=== PATIENT | male | born 1950 ===

== ENCOUNTER 2020-06-12 13:27 | Inpatient (IN) | payer MEDICARE, BC ==
[~2020-06-12] VITALS: Ht 170.2 cm; Wt 93.0 kg
--- NOTE | 2020-06-12 14:00 | NUR ---
RECEIVED VIA CART FROM [facility] IN [place] 69Y/O MALE.IS CONFUSED AND DISORIENTED.OBSERVED TALKING TO UNSEEN PERSON.IS VERY HARD OF HEARING ,WEARS GLASSES BUT DOES NOT HAVE THEM WITH HIM.IS AMBULATORY WITH WALKER AT HOME.CHARGE NURSE MARISSA BERGMAN RN SPOKE WITH SPOUSE THELMA ADORNO AT [phone] TO OBTAIN PERMISSON TO TREAT AND CODE STATUS DNR.HAS HAD COVID VACCINE X2 AND TESTED NEGATIVE FOR COVID 06/11/20.COVID TEST NOT ORDERED ON ADMISSION.PHARMACY OF CHOICE IS [facility] IN [place].PASSCODE 1805 GIVEN TO SPOUSE.PCP IS CHACORTA MURILLO [phone].WILL INITIATE PLAN OF CARE.
--- NOTE | 2020-06-12 18:00 | NUR ---
REFUSED EVENING MEAL.CONTINUES TO TALK TO UNSEEN PERSON.
[2020-06-12] MEDS ORDERED: BAYER CHEWABLE81 MG PO (19:56)
[2020-06-12] MEDS ORDERED: ZYLOPRIM300 MG PO (19:56)
[2020-06-12] MEDS ORDERED: NORVASC10 MG PO (19:56)
[2020-06-12] MEDS ORDERED: LIPITOR20 MG PO (19:57)
[2020-06-12] MEDS ORDERED: DONEPEZIL HCL10 MG PO (19:57)
[2020-06-12] MEDS ORDERED: KEPPRA500 MG PO (19:57)
[2020-06-12] MEDS ORDERED: COZAAR100 MG PO (19:57)
[2020-06-12] MEDS ORDERED: ZOLOFT100 MG PO (19:58)
[2020-06-12] MEDS ORDERED: TRAZODONE HCL50 MG PO (19:58)
[2020-06-12] MEDS ORDERED: ERGOCALCIF50000 UNIT PO (19:58)
[2020-06-12 20:00] VITALS: BP 134/88
--- NOTE | 2020-06-12 21:42 | NUR ---
PT IS RECEIVED IN A WHEELCHAIR OUTSIDE THE NURSES STATION. OBSERVED HAVING A CONVERSATION WITH UNSEEN OTHERS. RELATES THAT HE IS ON A PHONE CALL. COOPERATIVE WITH STAFF. DIFFICULT TO REDIRECT. MONITOR FOR SAFETY.
[2020-06-13 07:06] LABS: BASOPHILS 0.6 % (0-2); EOSINOPHILS 4.8 % (0-7); HEMATOCRIT 46.8 % (42.0-54.0); HEMOGLOBIN 14.8 g/dL (13.5-17.5); IMMATURE GRANULOCYTES 0.4 % (0-5); LYMPHOCYTE ABS# 1.01 10x3/uL (1.32-3.57); LYMPHOCYTES 20.3 % (15-50); MCH 27.6 pg (26.0-34.0); MCHC 31.6 g/dL (31.0-37.0); MCV 87.3 fL (80.0-100.0); MEAN PLATELET VOLUME 11.2 fL (7.4-10.4); MONOCYTES 7.2 % (2-11); NEUTROPHIL ABS# 3.32 10x3/uL (1.78-5.38); NEUTROPHILS 66.7 % (40-80); PLATELET COUNT 153 10x3/uL (130-400); RBC 5.36 10x6/uL (4.20-6.10); RDW 13.3 % (11.5-14.5)
[2020-06-13 08:04] LABS: ALBUMIN 3.3 g/dL (3.4-5.0); ANION GAP 15.9 mmol/L (8-16); BILIRUBIN - TOTAL 0.33 mg/dL (0.2-1.3); CALCIUM 8.8 mg/dL (8.5-10.1); CARBON DIOXIDE 25.9 mmol/L (21.0-32.0); CHOL - HDL RATIO 2.2 ratio (2.3-4.9); CREATININE - SERUM 2.1 mg/dL (0.6-1.3); LDL-HDL RATIO 0.7 ratio (1.5-3.5); POTASSIUM - SERUM 4.8 mmol/L (3.5-5.1); PROTEIN - SERUM 6.6 g/dL (6.4-8.2); THYROID STIMULATING HORMONE 0.54 uIU/mL (0.36-3.74)
--- NOTE | 2020-06-13 08:53 | NUR ---
PT CALLED THIS SHIFT. PASSCODE GIVEN. SHE WANTED TO KNOW HOW HIS NIGHT WAS AND WHAT HIS BLOOD SUAGR WAS. NURSE GAVE AN UPDATE HE SLEPT WELL, CONTINUES TO HAVE HALLUCINATIONS AND HIS FBSB WAS 111 MG/DL. SHE THANKED NURSE STATING I'M SURE THE DOCTOR HAS NOT BEEN IN YET TO SEE HIM BUT I JUST WANTED TO KNOW HOW HE WAS DOING.
[2020-06-13 09:42] VITALS: BP 143/72
--- NOTE | 2020-06-13 13:09 | PSY ---
PATIENT NAME:EDISON ADORNO MEDICAL RECORD: [id number] : 50 LOCATION:[facility] [id number] ADMISSION DATE: 06/12/20 ACCOUNT: [id number] PSYCHIATRIC EVALUATION DATE OF EVALUATION: 06/12/20 IDENTIFYING DATA: The patient is 69 years old and he was transferred here on a voluntary basis. CHIEF COMPLAINT: Aggression and paranoid thoughts. HISTORY OF PRESENT ILLNESS: The patient is very distressed. He is crying, rubbing his head, rocking back and forth, and clearly is displaying a high degree of distress with a low degree of specificity about what is wrong and how I can help him. There is some information that I have at this point and additional sources need to be obtained. Apparently, he was inpatient at [facility] on the rehabilitation unit. He was admitted there for the nebulous diagnosis of metabolic encephalopathy. That does not make sense to me, it is not an appropriate diagnosis or rehabilitation admission that this is what has been told to us and I do not have the records at this point. The patient is particularly triggered and becomes agitated when the name Ralf is mentioned, I believe that is one of his children, but I did not want to mention the name or ask him about this because he was so distressed. He does tell me that he does not want to live, does not care what happens to him, but says he would not hurt himself. I did ask him about wanting to hurt anyone else. He did not mention anyone including the name, Ralf. I did not ask him any more questions because of his current situation and wanted to keep the initial interview abbreviated because of his distress. PAST MEDICAL HISTORY: I do not know that his past medical history is significant for seizure disorder, chronic renal disease, diabetes, previous stroke, and hypertension. PAST PSYCHIATRIC DISEASE: Significant for a diagnosis of dementia and both Lewy body and Alzheimer's have been mentioned. FAMILY HISTORY: Unknown. SOCIAL HISTORY: The patient is and had been living with his ; I do not know if this person Ralf is one of his children are not. I do not know about his longitudinal history of social and occupational functioning and did not enquire about it because of the reasons mentioned above. MENTAL STATUS EXAMINATION: The patient is alert, awake, and oriented to person and place, but not to time or situation. His mood is anxious and his affect is labile. He is crying and rubbing his head and holding his face and wringing his hands and rocking back and forth. I did not go through formal mental status testing, but based on the interview, I think that his memory, concentration, and abstraction abilities are impaired. As mentioned above, he has these vague thoughts of not wanting to live, but no thoughts of harming others. ALLERGIES: Unknown. CURRENT MEDICATIONS: Unknown and the MAR from the other hospital is pending. ASSESSMENT: AXIS I: Advanced neurocognitive disorder of the Alzheimer's type. Major depression, severe. AXIS II: Deferred. AXIS III: Diabetes, seizure disorder, status post stroke, hypertension, chronic renal disease. AXIS IV: Unknown. AXIS V: Global assessment of functioning is 25. PLAN: At this time, the patient is again displaying a very high level of distress and we do not have even his list of medications. I am going to give him a low dose of Ativan to calm him and will gather additional information which may significantly influence what I have written above, but I will document that in subsequent notes. He is in a safe place, he will be fully evaluated and symptoms will be addressed as they present. TRANSINT:[id number] Voice Confirmation ID: [id number] DOCUMENT ID: [id number] ANATOLY HALE MD at 1309 CC: [id number] DICTATION DATE: 06/12/201808 BIRD SITTER: 06/12/20 2141 ADM IN [facility] [address] [place] [address]
--- NOTE | 2020-06-13 18:02 | NUR ---
Patient was rec'd this am in a w/c in [facility]. He is self ambulatory in his w/c. He is having active hallucinations and will be talking to the staff and answering his hallucinations and his delusions. He is paranoid. He is Hyper mobile as he goes really fast in his w/c and will hit staff, other patients, the wall etc... He gets easily upset if he is trying to answer his hallucinations and converse with staff. He is med compliant and took meds whole without difficulty. He cannot answer this nurses questions if he is having delusions, paranoia or hallucinations.He attempted to attend group activities/therapy but was unable.
[2020-06-13 20:00] VITALS: BP 114/69
--- NOTE | 2020-06-13 21:20 | NUR ---
PT IS ALERT AND ORIENTED TO SELF ONLY. RECEIVED IN DAYROOM IN WHEELCHAIR. HE IS OBSERVED SPEAKING WITH UNSEEN OTHERS. HYPERVERBAL AND RESTLESS IN WHEELCHAIR. COMPLIANT WITH ALL MEDICATIONS. DIFFICULT TO REDIRECT AT TIMES. PLEASANT WITH STAFF. MONITOR FOR SAFETY.
[2020-06-14 06:20] LABS: RAPID PLASMA REAGIN Non Reactive (Non Reactive)
[2020-06-14 08:29] VITALS: BP 127/76; Ht 170.2 cm; Wt 93.0 kg
[2020-06-14 09:34] VITALS: BP 126/70
--- NOTE | 2020-06-14 16:44 | NUR ---
Patient is in the dayrroom and was attempting to lure another patient into a corner and make him sit down. This patient reached out for his hand and stated "now sit down". The other patient started to walk away and this patient started rolling his w/c real fast next to this patient and almost knocked him to the floor when this nurse interviewed. This patient said "I'm sorry" when redirected.
[2020-06-14 20:00] VITALS: BP 107/74
--- NOTE | 2020-06-14 22:10 | NUR ---
SPOKE WITH PATIENT'S AND UPDATE GIVEN. RELATED SHE WILL VISIT TOMORROW AND WAS ASKING IF ANOTHER FAMILY MEMBER WHICH IS IMPAIRED COULD VISIT AT THE SAME TIME WITH HER. INFORMED PATIENT'S TO CALL IN AM AND CHECK WITH THE DAY SHIFT IF IT IS APPROVED. VERBALIZED UNDERSTANDING.
--- NOTE | 2020-06-14 23:49 | NUR ---
B)RECEIVED PATIENT SITTING IN THE DAYROOM IN A WHEELCHAIR. ANGRY AFFECT. ANGRY AND WHEN STAFF ATTEMPTED TO INTERACT WITH PATIENT HE REALTED "I'M STUCK HERE. WON'T LET ME DO ANYTHING." INQUIRED TO WHAT PATIENT WANTS TO DO HE RESPONDS "WHAT DO YOU WANT ME TO DO? ALL I'M TRYING TO DO IS BE FAIR." UNABLE TO COMMUNICATE WITH PATIENT DUE TO PREOCCUPATION WITH FEELINGS OF BEING TREATED UNFAIRLY. I)ADMINISTER MEDS AND MONITOR COMPLIANCE. INVOLVE IN REALITY BASED CONVERSATIONS. R)MED COMPLIANT. PATIENT IS PREOCCUPIED WITH FEELINGS OF BEING MISTREATED AND IS ANGRY ABOUT BEING HERE. P)CONTINUE POC AND PROVIDE SAFE ENVIRONMENT.
[2020-06-15 05:54] LABS: BILIRUBIN NEGATIVE (NEGATIVE); KETONE NEGATIVE (NEGATIVE); NITRITE NEGATIVE (NEGATIVE); UROBILINOGEN NORMAL mg/dL (< 2)
[2020-06-15 08:00] VITALS: BP 114/72
--- NOTE | 2020-06-15 11:22 | NUR ---
PT CALLED TO CHECK ON PT. PASSCODE GIVEN. PT WAS HAVING A BAD EVENING ON PREVIOUS SHIFT. PT WAS DOING MUCH BETTER THIS A.M. SHE STATED SHE WOULD BE VISIT THIS SHIFT.
--- NOTE | 2020-06-15 15:35 | NUR ---
VISITING WITH PATIENT. NO ADVERSE BEHAVIORS OBSERVED.
--- NOTE | 2020-06-15 16:56 | NUR ---
DAUGHTER HERE VISITING WITH PATIENT. VISITED EARLIER AND PATIENT STATED TO HER THAT HIS STEP-SON WAS PLANNING TO KILL HIM. ASSURED PATIENT THAT WAS NO THE CASE. PATIENT ALSO STATED HIS CONCERN TO HIS DAUGHTER THAT STEP-SON WAS PLANNING TO KILL HIM. DTR. ALSO RE-ASSURED PT. THAT STEP-SON WAS NOT PLANNING TO HARM HIM. PT STATED THAT STEP-SON WAS RUNNING HIS LIFE. PATIENT QUITE TEARFUL AT TIMES. PATIENT WAS PARTIALLY MED-COMPLIANT FOR MORNING MED PASS. HOWEVER, HE THREW SEVERAL OF HIS MEDS ACROSS THE ROOM. CONTINUE POC, MONITORING FOR PARANOIA AND MED COMPLIANCE.
--- NOTE | 2020-06-15 17:17 | NUR ---
PT CRYING AT THIS TIME STATING HE WAS FRUSTRATED WITH EVERYTHING AND HE WANTED TO GO HOME. STATED REDIRECTED AND REASSURED PT HE WAS DOING BETTER AND WOULD EVENTUALLY GO HOME. THIS NURSE DID SPEAK WITH FAMILY AFTER VISITATION. FAMILY WAS VISIBLY UPSET WITH HOW THE VISIT WENT STATING THE SEIZURES AND DEMENTIA HAVE REALLY PUT HIM DOWNHILL. ITS VERY HARD TO SEE WITH HIM BEING LIKE THIS. NURSE STATED IT WOULD TAKE SOME TIME FOR HIS MEDICATIONS AND GIVING HIM TIME TO SETTLE IN. FAMILY DID VERBALIZIE UNDERSTANDING.
[2020-06-15 20:00] VITALS: BP 114/64
--- NOTE | 2020-06-15 23:54 | NUR ---
RECEIVED PATIENT IN DAYROOM IN WHEELCHAIR, HE WAS INTERACTING WITH OTHER PEERS TO THE BEST OF HIS ABILITY. MEDS CRUSHED, COMPLIANT WITH MEDS. HE WAS PLAYING WITH A BALLOON WITH ANOTHER PATIENT. WILL FOLLOW POC
[2020-06-16 09:43] VITALS: BP 150/73
--- NOTE | 2020-06-16 17:48 | NUR ---
RECEIVED IN PATIENT ROOM. RESTING IN BED WITH EYES OPEN. CALM AND COOPERATIVE WITH CARE AND ASSESSMENT. NO AGGRESSIVE BEHAVIOR. NO PARANOID OR DELUSIONAL STATEMENTS MADE. REDIRECT AND REORIENT NEEDED. EATING DINNER AT THIS TIME. CONTINUE PLAN OF CARE.
[2020-06-16 21:06] VITALS: BP 115/59
--- NOTE | 2020-06-16 21:22 | NUR ---
RECEIVED IN DAYROOM. SITTING IN A WHEELCHAIR WITH PEERS AT HIS SIDE. CALM AND COOPERATIVE WITH CARE AND ASSESSMENT. NO SIGNS OF PARANOIA. REDIRECT AND REORIENT NEEDED. CONTINUES TO SIT CALMLY IN DAYROOM. CONTINUE PLAN OF CARE.
[2020-06-17 08:00] VITALS: BP 123/69
--- NOTE | 2020-06-17 11:12 | NUR ---
NUTRITION FOLLOW UP: COMMENTS: Patient now with height recorded. Patient has a BMI of 31.0. Patient is able to feed himself per MD. Good PO intake for the past 9 meals. DIET: Diabetic Diet w/ [place]-Thick Liquids PO INTAKE: 72% avg for last 9 meals; 100% for last 5 snacks WEIGHT: 06/13-199.4 lbs; 06/16-198 lbs SKIN: No PU or Chronic Wounds BM: x 1 on 06/17 RECOMMENDATIONS: -Continue DM diet with [place]Thick liquids per FRONT DESK OFFICER -Offer [place]Thick supplements if PO intake avg becomes <50% RD to follow up within 7 days
--- NOTE | 2020-06-17 11:30 | NUR ---
GT BELT, PATIENT MIN ASST TO STAND AND TO WALK IN CHEN FOR 80 FEET. PATIENT WAS A LITTLE UNSTEADY WHEN TURNING.
--- NOTE | 2020-06-17 12:00 | NUR ---
Received patient sitting in hallway in wheelchair by nurses station. Awake and alert to person only. Calm and cooperative with assessment at this time. Prescribed medications provided as ordered. Med compliant. Patient noted talking to unseen others throughout the shift. Redirect and reorient at this time. No aggression noted at this time. Fall precautions in place for safety. Will cpoc.
--- NOTE | 2020-06-17 13:46 | PN ---
PATIENT:EDISON ADORNO MEDICAL RECORD: [id number] LOCATION:CH[facility]O PersaudSuzanna112 ADMISSION DATE: 06/12/20 PROGRESS NOTE DATE OF SERVICE: 06/13/2020 SUBJECTIVE: The patient's case was discussed with staff. He has no new complaint. OBJECTIVE: The patient is in good behavioral control. He has no thoughts of harming himself or others. He tolerates his medicines well. ASSESSMENT: Dementia. PLAN: The patient will be maintained on current medications, which I have reviewed. TRANSINT:[id number] Voice Confirmation ID: [id number] DOCUMENT ID: [id number] ANATOLY HALE MD at 1346 CC: [id number] DICTATION DATE: 06/13/20 1601 CABINET WORKER: 06/13/202125 ADM IN [place] [id number] [place] [address]
--- NOTE | 2020-06-17 16:39 | NUR ---
concrete worker spoke to patient's , Ivania, to discuss patient's condition and discharge planning needs. concrete worker explained patient is talking to unseen others and was reported arguing with him this morning. Patient seems to be in agitated mood. concrete worker told Ivania that she can inquire about the medicines with nurse anytime she wants to know about medication changes, but the foster care social worker was not able to go over medications due to scope of practice. Ivania stated that she would ask nurse on next phone call and did not want to be transferred at this time. Ivania stated thatShe will contact nurse this evening for medication changes. Jenny also asked the foster care social worker what would be the place he would most fit at this time if he stays as he is. concrete worker recommended memory care or [facility] placement and stated patient needs 24/ supervision. No other needs were voiced at this time.
--- NOTE | 2020-06-17 20:28 | NUR ---
RECEIVED IN BEDROOM. RESTING QUIETLY IN BED WITH EYES OPEN. CALM AND COOPERATIVE WITH CARE AND ASSESSMENT. NO SIGNS OF PARANOIA. REDIRECT AND REORIENT NEEDED. RESTING IN BED WITH MHT BY HIS BEDSIDE. CONTINUE PLAN OF CARE.
[2020-06-17 21:36] VITALS: BP 156/86
[2020-06-18 08:43] VITALS: BP 133/84
--- NOTE | 2020-06-18 11:39 | NUR ---
PATIENT WAS SITTING IN WHEELCHAIR, WAS VERY CONFUSED. REFUSED ALL MOBILITY.
--- NOTE | 2020-06-18 16:04 | PN ---
PATIENT:EDISON ADORNO MEDICAL RECORD: [id number] LOCATION:CH[facility] Barriga112 ADMISSION DATE: 06/12/20 PROGRESS NOTE DATE OF SERVICE: 06/17/2020 SUBJECTIVE: The patient's case was discussed with staff. He has no new complaint. OBJECTIVE: The patient is only partially oriented. He is significantly and seriously impaired. He is talking to persons not present. ASSESSMENT: Dementia. PLAN: The patient will be treated with a higher dose of Effexor. His long-term prognosis is guarded. TRANSINT:[id number] Voice Confirmation ID: [id number] DOCUMENT ID: [id number] ANATOLY HALE MD at 1604 CC: [id number] DICTATION DATE: 06/17/20 172 DEPUTY ADMINISTRATOR: 06/17/20 2241 ADM IN [facility] [address] [place] [address]
--- NOTE | 2020-06-18 17:44 | NUR ---
WAS OBSERVED WITH TEARS ON CHEEKS THIS AM.THIS NURSE TALKED WITH HIM AND ENCOURAGED HIS VOICING WHAT WAS MAKING HIM CRY.HE STATED"I LET EVERYONE DOWN,I JUST WANT ANOTHER CHANCE TO PROVE MYSELF." WOULD NOT VOICE HOW HE FELT HE LET HIS FAMILY DOWN.HIS SPOUSE CALLED TODAY TO CHECK ON HIM,THIS NURSE INFORMED HER ABOUT HIS CRYING AND WHAT WAS SAID.SHE WILL CALL HIM TONIGHT.IS COMPLIANT WITH STAFF AND MEDS.NO AGGRESSION OBSERVED.HE WAS OBSERVED TALKING TO UNSEEN PERSON.WILL CONTINUE WITH CURRENT PLAN OF CARE,MONITOR FOR CHANGES AND SAFETY.
--- NOTE | 2020-06-18 21:41 | NUR ---
RECEIVED IN HALLWAY OUTSIDE OF NURSES STATION. SITTING QUIETLY IN A WHEELCHAIR. CALM AND COOPERATIVE WITH CARE AND ASSESSMENT. NO SIGNS OF PARANOIA. REDIRECT AND REORIENT NEEDED. CONTINUES TO SIT QUIETLY IN HALLWAY. CONTINUE PLAN OF CARE.
[2020-06-18 22:26] VITALS: BP 124/66
[2020-06-19 08:00] VITALS: BP 137/74
--- NOTE | 2020-06-19 12:53 | NUR ---
NUTRITION REASSESSMENT: COMMENTS: Patient continues eating well and able to feed himself. DIET: Diabetic Diet with [place] Thick Liquids PO INTAKE: 90% avg for last 9 meals WEIGHT: 06/12-199.4 lbs; 06/16-198 lbs BM: x 1 on 06/18 SIG MEDS: Lipitor, Vit D SIG LABS: No new labs since 06/13 RECOMMENDATIONS: Continue current diet per MD/NET TRAINER RD to follow up within 7 days
--- NOTE | 2020-06-19 13:19 | NUR ---
GT BELT, PATIENT MIN ASST TO STAND AND TO WALK IN CHEN FOR 110 FEET USING WALKER. PATIENT DOES PUSH THE WALKER TOO FAR IN FRONT OF HIM, HOWEVER, AND NEEDS TO BE REMINDED TO BRING IT PHOTO TUBE ASSEMBLER TO HIM.
--- NOTE | 2020-06-19 15:39 | PN ---
PATIENT:EDISON ADORNO MEDICAL RECORD: [id number] LOCATION:CH[facility] Barriga112 ADMISSION DATE: 06/12/20 PROGRESS NOTE DATE OF SERVICE: 06/18/2020 SUBJECTIVE: The patient's case was discussed with staff. He has no new complaint. OBJECTIVE: The patient is delusional. He is convinced that, Colt, his son is trying to kill him. He otherwise has been cooperative and not aggressive. He has not been observed talking to persons not present today as he had been in the past few days. ASSESSMENT: Dementia. PLAN: The patient is taking antipsychotic medication. I do not believe it has had an opportunity to be effective and I am reluctant to increase the dose without giving it an opportunity to do so for fear of precipitating side effects. TRANSINT:[id number] Voice Confirmation ID: [id number] DOCUMENT ID: [id number] ANATOLY HALE MD at 1539 CC: [id number] DICTATION DATE: 06/18/20 1616 CREASING AND CUTTING PRESS FEEDER: 06/18/20 2344 ADM IN [facility] [address] [place] [address]
--- NOTE | 2020-06-19 17:29 | NUR ---
Patient has been argumentive all afternoon. He is restless. He is unable to be directed or redirective and countless times he wants to argue with the staff and other patients about issues that don't make sense. He acts as if he just wants to argue with someone. Staff has allowed him time to discuss any concerns or issues but he continues to interupe staff and he was disruptive in group/activities. Ativan IM given as prescribed.
--- NOTE | 2020-06-19 17:57 | NUR ---
Patient is in the dining room. He is disruptive to the other patients. He slamed his tray down one time and it caused spagetti sauce to splatter and then put his head down on the table almost spilling his thickened milk and juice. He is attempting attention seeking behaviors this afternoon and will not redirect.
--- NOTE | 2020-06-19 18:00 | NUR ---
Patient rec'd up in a w/c this am. He is A/O times [address] He is med compliant and takes his meds whole. He has been practicing attention seeking behaviors most all of the afternoon. He will ask the same questions, repeat sentences, talk over the staff and other patients. He has become easily upset with his thickened fluids and he has been on that for a long time. He was disruptive in group.He has a HX of seizure disorder with no seizure activity noted and DX of Lewy body. He has active Delusiones and paranoia, He has poor judgement and insight. He participated very little in group therapy today.
[2020-06-19 20:00] VITALS: BP 132/54
--- NOTE | 2020-06-19 20:25 | NUR ---
RECEIVED PATIENT SITTING IN WHEELCHAIR IN HIS ROOM, HE IS FIDGETING WITH HIS CPAP MACHINE, HE SEEMS AGITATED AND SAIDE "I'VE BEEN BETTER AND EVERYTHING IS GOING AGAINST ME" HE HAS POOR EYE CONTACT RIGHT NOW. COMPLIANT WITH MEDS. WILL FOLLOW POC
[2020-06-20 08:55] VITALS: BP 120/70
--- NOTE | 2020-06-20 11:42 | NUR ---
PHYSICAL THERAPY HERE TO SEE PT AT THIS TIME.
--- NOTE | 2020-06-20 13:29 | NUR ---
GT BELT, PATIENT MIN ASST TO STAND AND MIN ASST TO WALK 150 FEET USING WALKER. PATIENT PUSHES WALKER TOO FAR IN FRONT OF HIM AND ON TURNS HE STEPS OUTSIDE OF THE WALKER AND HAS TO BE CORRECTED ON PROPER WALKER MANAGEMENT.
--- NOTE | 2020-06-20 15:36 | NUR ---
pt brother here to visit at this time. passcode given.
--- NOTE | 2020-06-20 15:46 | NUR ---
pt called to see how he was doing. passcode given. pt is having a better day, he got a shower, shave and allowed staff to comb his hair. he is having a overall better day. he is taking his medications and eating well. she stated well i know his brother is suppose to be visiting at this time. nurse stated that his correct and he was doing better. she thanked nurse for inforamtion.
--- NOTE | 2020-06-20 16:09 | PN ---
PATIENT:EDISON ADORNO MEDICAL RECORD: [id number] LOCATION:[facility] Barriga112 ADMISSION DATE: 06/12/20 PROGRESS NOTE DATE OF SERVICE: 06/19/2020 SUBJECTIVE: The patient's case was discussed with staff. He has no new complaint. OBJECTIVE: The patient is withdrawn and severely impaired cognitively. He has not been aggressive. ASSESSMENT: Dementia. PLAN: Current medicines have been reviewed. I do believe he is less psychotic. I anticipate he can be transitioned out of the hospital soon. TRANSINT:[id number] Voice Confirmation ID: [id number] DOCUMENT ID: [id number] ANATOLY HALE MD at 1609 CC: [id number] DICTATION DATE: 06/19/20 1638 EQUIPMENT SALES SPECIALIST: 06/19/20 2329 ADM IN [place] [id number] [place] [address]
--- NOTE | 2020-06-20 18:34 | NUR ---
PT SOCIALZING WITH OTHER PEERS. PT IS CALM AND COOPERATIVE. CONFUSION NOTED. NO AGGRESSIVE BEHAVIOR NOTED. PT NOTED TO TALK TO AUDITORY HALLUCINATIONS. NO AGITATED NOTED WITH HALLUCINATIONS. CAN MAKE NEEDS KNOWN. CONTS TO WORK WITH PT. PT CAN TRANSFER SELF. COMPLIANT WITH MEDS, VITALS AND ASSESSMENTS. CHAIR AND BED ALARM IN PLACE AND ACTIVE. WILL CONT PLAN OF CARE.
[2020-06-20 20:00] VITALS: BP 123/63
--- NOTE | 2020-06-21 00:35 | NUR ---
B) Patient is alert and oriented to self, hallucinations and conversations with unseen others, I) Administered scheduled medications as ordered, redirected as needed, reoriented as needed, R) Medication compliant, patient has long conversations with unseen others, P) Continue plan of care.
--- NOTE | 2020-06-21 12:15 | NUR ---
pt sitting in dining area arguing with self. pt is "talking to evert" staff attempted to redirect pt several times. attempted to reorient unable to do so at this time. pt is upset, crying stating "this is not fair. its one sided it and i demand a new trial" nurse administed Haldol 2 mg PO and Ativan 0.[address] Arreola order. will reassess for effectiveness.
--- NOTE | 2020-06-21 13:26 | NUR ---
prn is somewhat effective at this time.
--- NOTE | 2020-06-21 13:27 | NUR ---
pt sitting in w/c in dining area propelling self. confused. alert to self only. conts to have auditory hallucinations. unable to redirect at times. pt is not aggressive with redirection. Paranoid toward a certain staff member conts. can make needs known. compliant with meds, vitals and assessments. can transfer self. chair and bed alarm in place and active. will cont plan of care.
--- NOTE | 2020-06-21 15:45 | NUR ---
nurse spoke with pt at this time. passcode given. she wanted an update on how he was doing. nurse stated he did not have a good afternoon yesterday after visitation and he has not had a good day at all. he did well during the visit but after he was upset talking about evert and court. this shift nurse had to administer haldol and ativan po due to pt being so upset and crying. he is still talking about evert and how it was not fair. everyone is against me and its not fair at all. stated "okay i know when i called him yesterday he was upset. so you think calling and visiting is not a good idea?" Nurse stated "no, he was having a good day and a good visit. It's after what happens that is concerning. he is upset, crying, paranoid and does not understand why. family still seems to trigger an emotional response. I would recommand that and wednesday visitation no family. This will allow the pt the weekend to settle in and not be distrubed." she did not voice understanding. nurse cont to educate on importance of pt being able to settle in and not be upset. she thanked nurse. nurse stated she was more than welcome to get information from the staff members how the pt is doing. she verbalizied understanding.
--- NOTE | 2020-06-21 16:50 | NUR ---
[facility] large knotted area noted to right side of forehead. when staff inquired waht happended to pt head. pt stated well when i attempted to get that bar in there i bumped my head." per pt he hit his head on the grab bar. denies any pain. will cont to monitor.
--- NOTE | 2020-06-21 17:18 | NUR ---
nurse spoke with Mrs. Tanner at this time in regards to Mr. Tanner having a knot on his forehead. nurse gave an update pt denies pain. pt was in bathroom grabbed bar and leaned forward hitting forehead on the bar. stated well i thought he wasn't allow to go to the bathroom alone." nurse stated staff was in the area not in the bathroom with pt due his privacy and was mobile enough to transfer self. pt did not request assistance from the staff member." she stated well okay thank you for calling me." nurse stated you are welcome call if you have any more questions."
[2020-06-21 18:24] VITALS: BP 160/72
[2020-06-21 20:00] VITALS: BP 129/79
--- NOTE | 2020-06-21 21:47 | NUR ---
PT IS ALERT AND ORIENTED TO SELF AND PLACE. HE RELATES THAT HE IS IN THE HOSPITAL BUT FOR PHYSICAL THERAPY. RECEVIED IN HIS ROOM IN BED RESTING CALMLY. COMPLIANT WITH ALL MEDICATIONS. NO HALLUCINATIONS NOTED AT THIS TIME. CALM AND COOPERATIVE WITH STAFF. EASY TO REDIRECT. MONITOR FOR SAFETY.
[2020-06-22 08:45] VITALS: BP 125/80
--- NOTE | 2020-06-22 10:21 | NUR ---
PATIENT NOTED TO BE HAVING A CONVERSATION WITH UNSEEN OTHERS.
--- NOTE | 2020-06-22 16:33 | NUR ---
RECEIVED THIS AM UP IN WHEELCHAIR.PROPELLS SELF ABOUT UNIT.IS ORIENTED TO SELF AND HOSPITAL.COMPLIANT WITH STAFF AND MEDS.WILL CONTINUE WITH CURRENT PLAN OF CARE.OBSERVED TALKING TO UNSEEN PERSON.NO AGGRESSION OBSERVED.
--- NOTE | 2020-06-22 17:50 | NUR ---
YELLING OUT LOUD.HALLUCINATING.WANTS TO LEAVE UNIT TO TAKE CARE OF SOME BUSINESS.STATES HE HAS 3 PEOPLE WAITING OUTSIDE FOR HIM.WILL NOT REDIRECT.AGGRESSIVE WITH STAFF.HALDOL 2MG AND ATIVAN 0.5MG IM TO LEFT DELTOID GIVEN.
--- NOTE | 2020-06-22 18:46 | NUR ---
POOR RESPONSE TO ATIVAN AND HALDOL.HAS QUIETENED DOWN BUT IS ARGUMENTIVE.
[2020-06-22 20:00] VITALS: BP 116/81
--- NOTE | 2020-06-22 21:12 | NUR ---
PT IS ALERT AND ORIENTED TO SELF ONLY. POOR INSIGHT INTO HIS SITUATION. OBSERVED PT RAMMING HIS WHEELCHAIR INTO THE DOORS IN AN ATTEMPT TO EXIT. YELLING AND THREATENING STAFF IF THEY DIDNT ALLOW HIM TO LEAVE. VERY AGITATED AND ARGUMENTATIVE. DEMANDING AND UNABLE TO REDIRECT. DAYSHIFT REPORTED THAT HE HAS RECEIVED A PRN ON THEIR SHIFT. COMPLIANT WITH HS MEDICATIONS. EDUCATED PT ON UNIT POLICIES HE YELLED "I DONT CARE I WANT TO GO HOME I DONT LIKE IT HERE." PROVIDED HS SNACK. MONITOR FOR SAFETY.
--- NOTE | 2020-06-22 21:33 | NUR ---
PT CONTACTED UNIT FOR AN UPDATE. PASSCODE VERIFIED. UPDATE ON AGGRESSION AND EXIT SEEKING BEHAVIORS GIVEN. SHE RELATED THAT SHE WOULD CALL BACK LATER ON TONIGHT TO SEE IF HE HAD CALMED DOWN ANY. RELATED THAT SHE WAS UNABLE TO COME FOR VISITATION BECAUSE OF HIS RECENT BEHAVIORS. EDUCATED ON POLICY. SHE VERBALIZED UNDERSTANDING.
[2020-06-23 08:22] VITALS: BP 120/75
--- NOTE | 2020-06-23 15:06 | NUR ---
PATIENT WAS IN BED SLEEPING. ATTEMPTED TO WAKE PATIENT UP TO WALK BUT PATIENT WAS LETHARGIC AND DIDN'T WANT TO MOVE. WILL SEE PATIENT AGAIN IN THE AM.
--- NOTE | 2020-06-23 15:23 | NUR ---
Rec'd patient this am up in a w/c in the hallway. He is A/O to person and situation. He is worried about his "family" this morning and continues to tell staff that he is "not mad at my son anymore" and " I'm not mad at my " and then repeats this same info several times in a roll. He is on nectar thickened fluids . Staff reports he has been yelling at staff and very agitated on privous shift. He has had a recent med change with Trish. He is unpredictable. He often will be in a manic stage and frame of mind. He has a seizure disorder (no seizures) and has Lewy Body HX. He is med compliant and takes his meds whole. He is not always redirectable or directable. Patients spouse called at 1450 for update on patient and info given after pass code received.
--- NOTE | 2020-06-23 19:53 | NUR ---
RECEIVED IN BEDROOM. USING THE BATHROOM. HAS ALL HIS CLOTHS AND PERSONAL ITEMS ON HIS BED READY TO LEAVE. CALM AND COOPERATIVE WITH CARE AND ASSESSMENT. NO SIGNS OF PARANOIA. REDIRECT AND REORIENT NEEDED. RESTING AT BESIDE IN WHEELCHAIR AT THIS TIME. CONTINUE PLAN OF CARE.
--- NOTE | 2020-06-23 21:14 | NUR ---
PT CALLED FOR UPDATE ON BEHAVIORS. PASS CODE VERIFIED. UPDATED ON OBSERVED BEHAVIORS NOTED SO FAR THIS SHIFT. RELATED SHE REALLY WANTED TO BRING BRAYAN TO TUESDAYS VISITATION. ADVISED HER TO CALL THE NURSES WEDNESDAY OR WEDNESDAY BEFORE VISITATION. VERBALIZED UNDERSTANDING.
[2020-06-23 21:20] VITALS: BP 122/66
[2020-06-24 08:00] VITALS: BP 126/67
--- NOTE | 2020-06-24 08:54 | PN ---
PATIENT:EDISON ADORNO MEDICAL RECORD: [id number] LOCATION:[facility] ADMISSION DATE: 06/12/20 PROGRESS NOTE DATE OF SERVICE: 06/20/2020 SUBJECTIVE: The patient's case was discussed with staff. He has no new complaint. OBJECTIVE: The patient is significantly better. He has poor insight about his situation, but I did talk with him about that and he did not become agitated. I was not sure exactly what he was talking about because it was convoluted and disorganized, but that is part of his dementia. The important part is that he did not become enraged at the mere mention of his name. He will be maintained on current medicines. He is in need of 24-hour a day supervision. At this point, it is unclear what setting would be the least restrictive in which to provide that. TRANSINT:[id number] Voice Confirmation ID: [id number] DOCUMENT ID: [id number] ANATOLY HALE MD at 0854 CC: [id number] DICTATION DATE: 06/20/201653 MANAGER RESPIRATORY CARE: 06/20/202055 ADM IN [facility] [address] [id number]
--- NOTE | 2020-06-24 10:00 | NUR ---
Received patient sit in wheelchair by nurses station. Awake and alert to person and place at this time. Calm and cooperative with assessment. Prescribed medications provided as ordered. Med compliant at this time. Patient continues to have hallucinations. Redirect and reorient as needed. Fall precautions in place for safety. Will cpoc.
--- NOTE | 2020-06-24 10:09 | NUR ---
shell worker spoke to patient's , Ivania, to discuss discharge planning needs at this time. Ivania stated that she wanted patient to go into long-term care facility. Ivania's choices are [facility], [facility], or [facility]. shell worker stated patient needs memory care. shell worker educated on disease progression, different levels of care, and patient's behaviors. No other needs were voiced at this time. shell worker will do state paperwork for prison placement and referrals when patient is stable.
--- NOTE | 2020-06-24 11:41 | NUR ---
GT BELT, PATIENT MIN ASST TO STAND FROM WHEELCHAIR AND MIN ASST TO WALK IN CHEN FOR 100 FEET USING WALKER.
--- NOTE | 2020-06-24 17:46 | NUR ---
ALERT, RESTLESS AT TIMES, MEDS ADMIN PER ORDERS WITH COMPLETE COMPLIANCE NOTED. PATIENT REFUSED SUPPER TODAY, WATCHING TV INSTEAD. NO AGGRESSION. HOWEVER, PATIENT HAS PACED ABOUT IN W/C AT TIMES. NO AGGRESSION OR YELLING ALOUD NOTED. CONT POC OUTLINED.
--- NOTE | 2020-06-24 20:32 | NUR ---
RECEIVED IN HALLWAY. PT WENT INTO A PEERS ROOM AND REFUSED REFUSED TO GET OUT. YELLING AT STAFF. REDIRECTED. CALM AND COOPERATIVE WITH CARE AND ASSESSMENT. PATIENT APOLOGIZED FOR HIS EARLIER BEHAVIOR. NO SIGNS OF PARANOIA. REDIRECT AND REORIENT NEEDED. RESTING QUIETLY IN HIS ROOM AT THIS TIME. CONTINUE PLAN OF CARE.
[2020-06-24 21:42] VITALS: BP 153/82
[2020-06-25 14:19] VITALS: BP 141/76
--- NOTE | 2020-06-25 14:19 | PN ---
PATIENT:EDISON ADORNO MEDICAL RECORD: [id number] LOCATION:CH[facility] [address] ADMISSION DATE: 06/12/20 PROGRESS NOTE DATE OF SERVICE: 06/24/2020 SUBJECTIVE: The patient's case was discussed with staff. He has no new complaint. OBJECTIVE: The patient is partially oriented. He is sleeping and eating well. ASSESSMENT: Dementia. PLAN: The patient is going to be placed in a residential. His has given several homes close to her that we are referring him to. I think once accepted he can be transferred there. TRANSINT:[id number] Voice Confirmation ID: [id number] DOCUMENT ID: [id number] ANATOLY HALE MD at 1419 CC: [id number] DICTATION DATE: 06/24/20 1615 NURSE EXECUTIVE: 06/24/20 2300 ADM IN [facility] [address] [place] [address]
--- NOTE | 2020-06-25 15:48 | NUR ---
PT SITTING IN W/C AT THIS TIME. CALM AND COOPERATIVE WITH STAFF AT TIMES. WITHDRAWN AT TIMES. CONTS TO HAVE AUDITORY HALLUCINATIONS. LABILE BEHAVIOR NOTED. CONFUSION NOTED. CAN MAKE NEEDS KNOWN. COMPLIANT WITH MEDS, VITALS AND ASSESSMENTS. DENIES ANY PAIN. CAN TRANFER SELF. CHAIR AND BED ALARM IN PLACE AND ACTIVE. REDIRECT AND REORIENT NEEDED. WILL CONT PLAN OF CARE.
--- NOTE | 2020-06-25 20:13 | NUR ---
RECEIVED IN BEDROOM. RESTING IN BED WITH EYES CLOSED. RESPONDS TO VOICE. CALM AND COOPERATIVE WITH CARE AND ASSESSMENT. NO SIGNS OF PARANOIA. REDIRECT AND REORIENT NEEDED. CONTINUES TO REST QUIETLY IN BED. CONTINUE PLAN OF CARE.
[2020-06-25 21:50] VITALS: BP 116/63
--- NOTE | 2020-06-26 08:00 | NUR ---
Received patient lying in bed with eyes closed. Responds to verbal stimuli at this time. Awake and alert to person only. Calm and cooperative with assessment. Prescribed medications provided as ordered. Med compliant. Patient noted and talking to unseen others at this time. Redirect and reorient as needed. Patient can become aggressive with staff at times. Fall precautions in place for safety. Will continue plan of care.
[2020-06-26 09:22] VITALS: BP 117/65
--- NOTE | 2020-06-26 15:03 | PN ---
PATIENT:EDISON ADORNO MEDICAL RECORD: [id number] LOCATION:CH[facility]IAN[facility] [address] ADMISSION DATE: 06/12/20 PROGRESS NOTE DATE OF SERVICE: 06/25/2020 SUBJECTIVE: The patient's case was discussed with staff. He has no new complaint. OBJECTIVE: The patient has been agitated and disruptive with very poor insight about his situation. ASSESSMENT: Dementia. PLAN: Current medicines have been reviewed. The dose of his Klonopin will be increased slightly to address these disruptive behaviors. TRANSINT:[id number] Voice Confirmation ID: [id number] DOCUMENT ID: [id number] ANATOLY HALE MD at 1503 CC: [id number] DICTATION DATE: 06/25/20 1725 SAMPLE COLOR MAKER: 06/25/20 2336 ADM IN [id number] [place] [address]
--- NOTE | 2020-06-26 15:03 | NUR ---
Nutrition Re-Assessment: Diet: Diabetic, nectar thickened liquids PO intake: ~82% average x last 9 meals Last BM: 06/24/20 Wt: 202# (06/23/20); Admit wt: 199.4# (06/12/20) Meds noted: SSI Labs noted: POC Glu 103(WNL) Estimated nutrition needs: 5141-0170 lola (20-25 Act), 74-92gms protein (0.8-1), 1800-2700mL fluid (or per MD) Nutrition diagnosis: Swallowing difficulty r/t h/o CVA AEB need for nectar thickened liquids for safe swallow PO liquids. Nutrition goals: -PO intake >65% -Meet fluid needs -Stable weight Recommendations/Interventions: -Recommend continue current diet/or per BROKE WORKER recommendations. -Will continue to honor food preferences within diet restrictions. -RD will follow-up within 7 days.
--- NOTE | 2020-06-26 15:42 | NUR ---
GT BELT, PATIENT MIN ASST TO STAND AND TO WALK 130 FEET USING WALKER.
[2020-06-26 20:00] VITALS: BP 122/69
--- NOTE | 2020-06-26 22:10 | NUR ---
PT CONTACTED THE UNIT FOR UPDATES. VERIFIED PASSCODE. INFORMED HER THAT HE HAD BEEN HAVING CONVERSATIONS WITH UNSEEN OTHERS BUT DAYSHIFT REPORTED NO AGGRESSION. SHE VERBALIZED UNDERSTANDING AND RELATED THAT SHE WOULD CALL BACK TOMORROW FOR ANOTHER UPDATE.
--- NOTE | 2020-06-26 23:27 | NUR ---
PT IS ALERT AND ORIENTED TO SELF ONLY. RECEIVED IN HIS ROOM SITTING ON HIS BED. OBSERVED PT YELLING AT UNSEEN OTHERS. CALM AND COOPERATIVE WITH STAFF. COMPLIANT WITH ALL MEDICATIONS. DENIES ANY NEEDS AT THIS TIME. MONITOR FOR SAFETY.
[2020-06-27 09:58] VITALS: BP 115/71
--- NOTE | 2020-06-27 09:58 | NUR ---
GT BELT, PATIENT WAS MIN ASST TO STAND AND TO WALK 130 FEET USING WALKER.
--- NOTE | 2020-06-27 11:38 | PN ---
PATIENT:EDISON ADORNO MEDICAL RECORD: [id number] LOCATION:CHRISTIANO [address] ADMISSION DATE: 06/12/20 PROGRESS NOTE DATE OF SERVICE: 06/26/2020 SUBJECTIVE: The patient's case was discussed with staff. He has no new complaint. OBJECTIVE: The patient is in good behavioral control with poor insight about his situation. ASSESSMENT: Dementia. PLAN: Current medicines have been reviewed and will be maintained. TRANSINT:[id number] Voice Confirmation ID: [id number] DOCUMENT ID: [id number] ANATOLY HALE MD at 1138 CC: [id number] DICTATION DATE: 06/26/20 1524 SYSTEM ARCHIVE ANALYST: 06/26/20 1708 ADM IN [id number] [place] [id number]
--- NOTE | 2020-06-27 16:11 | NUR ---
PT HAS A VISITOR AT THIS TIME. PT IS UPSET HE COULD NOT GET OUTSIDE. ABLE TO REDIRECT BEHAVIORS.
--- NOTE | 2020-06-27 17:43 | NUR ---
PT EATING AT THIS TIME. PT IS CALM AND COOPERATIVE. CONFUSION NOTED. REDIRECT AND REORIENT NEEDED. PT CAN REDIRECT WELL. PT CAN MAKE NEEDS KNOWN. NO AGGRESSIVE NOTED. AUDITORY HALLUCINATIONS NOTED AT TIMES. PT DOES NOT TALK BACK SOMETIMES. COMPLIANT MEDS, VITALS AND ASSESSMENTS. PT IN W/C. CAN TRANSFER SELF. BED AND CHAIR ALARM IN PLACE AND ACTIVE. WILL CONT PLAN OF CARE.
[2020-06-27 20:00] VITALS: BP 126/73
--- NOTE | 2020-06-27 20:33 | NUR ---
RECEIVED PATIENT IN HIS ROOM, CALM, PLEASANT, CONFUSED, COMPLIANT WITH MEDS, CAN MAKE HIS NEEDS KNOWN. HAVE NOT SEEN PATIENT TALKING TO HIMSELF AT THIS TIME. WILL FOLLOW POC
--- NOTE | 2020-06-27 23:41 | NUR ---
PATIENT WAS GIVEN HALDOL AND ATIVAN PO FOR BECOMING AGITATED AND ARGUING WITH UNSEEN OTHERS. WILL MONITOR FOR EFFECTIVENESS.
[2020-06-28 08:30] VITALS: BP 127/77
[2020-06-28 09:27] VITALS: BP 127/77
--- NOTE | 2020-06-28 10:41 | NUR ---
railway traction line worker spoke to patient's , Ivania, to discuss discharge planning needs at this time. All nursing homes Ivania wanted patient to go to could not accept patient. Only one of them had a memory care unit which the patient needs for continuation of care and they have full beds at this time. Patient was put on a waiting list for [facility]. Until bed becomes available Ivania agreed for patient to be referred to [facility] and [facility]'s memory care unit. railway traction line worker made the referral. No other needs voiced at this time.
--- NOTE | 2020-06-28 14:07 | NUR ---
GT BELT, PATIENT MIN ASST TO STAND AND TO WALK 120 FEET USING WALKER. PATIENT WAS A LITTLE MORE UNSTEADY THIS SESSION.
--- NOTE | 2020-06-28 17:50 | NUR ---
PT CALLED THIS SHIFT. PASSCODE GIVEN. SHE WANTED AN UPDATE. NURSE GAVE AN UPDATE. NURSE GAVE AN UPDATE ON HOW PT IS DOING. PT IS DOING WELL THIS SHIFT. HE DID NOT HAVE A GOOD NIGHT. HE WAS GIVEN PRN MEDICATION DURING HOT KNIFE CUTTER. PT STATED SHE WAS COMING TO SEE HIM THIS WEEKEND ITS BEEN 2 WEEKS AND ANAND GOT TO SEE HIM. I KNOW ITS HARD FOR YALL WHEN WE LEAVE BUT ANAND GOT TO SEE HIM. NURSE STATED ITS NOT HARD ON THE STAFF ITS HARD ON THE PT. SHE DID NOT VERBALIZIE UNDERSTANDING. NURSE ATTEMPTED TO EDUCATE AT THIS TIME. DID NOT VERBALIZE UNDERSTANDING.
--- NOTE | 2020-06-28 18:42 | NUR ---
PT LAYING IN BED AT THIS TIME. PT IS CALM AND COOPERATIVE. ALERT TO SELF ONLY. REDIRECT AND REORIENT NEEDED. NO BEHAVIORS NOTED. CAN MAKE NEEDS KNOWN. REQUIRES SOME ASSISTANCE WITH ADLS. CHAIR ALARM IN PLACE AND ACTIVE. WILL CONT PLAN OF CARE.
[2020-06-28 20:00] VITALS: BP 128/73
--- NOTE | 2020-06-28 20:08 | NUR ---
PT IS ALERT AND ORIENTED TO SELF AND SITUATION. HE IS RECEIVED IN HIS ROOM RESTING WITH EYES CLOSED. CALM AND COOPERATIVE WITH STAFF. COMPLIANT WITH ALL MEDICATIONS. EASY TO REDIRECT. PROVIDED HS SNACK. MONITOR FOR SAFETY.
[2020-06-29 14:17] VITALS: BP 127/75
--- NOTE | 2020-06-29 17:52 | NUR ---
ALERT, CALM, CONFUSED. PLEASANT MOOD MOST OF THE SHIFT. HOWEVER, PATIENT DID BECOME TEARFUL WHEN SPOUSE VISITED AND ALSO WAS TEARFUL AFTER LEFT FOR HOME. MEDS ADMIN PER ORDERS WITH COMPLETE MED COMPLIANCE NOTED. NO ADVERSE REACTION TO MEDS. NO AGGRESSION. CONTINUE PLAN OF CARE.
[2020-06-29 20:00] VITALS: BP 115/68
--- NOTE | 2020-06-29 20:36 | NUR ---
B)SPOKE WITH THELMA, PATIENT'S . UPDATE GIVEN ON CONDITION. INFORMED HER PATIENT IS IN HIS ROOM LYING IN BED. PATIENT WAS COOPERATIVE WITH STAFF UPON ASSESSMENT.
--- NOTE | 2020-06-29 23:04 | NUR ---
B)RECEIVED PATIENT LYING IN BED AWAKE. ORIENTED TO PERSON AND DAY. POOR INSIGHT RELATING "I'VE BEEN HAVING LIGHT STROKES." WITHDRAWN. CALM AND COOPERATIVE AND DID NOT RELATE ANYTHING REGARDING BEING UPSET AT AND AFTER VISITAION TODAY. I)ADMINISTER MEDS AND MONITOR COMPLIANCE. REORIENT NEEDED. R)MED COMPLIANT. POOR REORIENTATION DUE TO IMPAIRED ABILITY TO RETAIN INFORMATION. P)CONTINUE POC AND PROVIDE SAFE ENVIRONMENT.
[2020-06-30 08:00] VITALS: BP 104/77
--- NOTE | 2020-06-30 12:06 | NUR ---
REC'D PT IN BED WITH EYES CLOSED. RESPONDS TO VERBAL STIMULI. AWAKE AND ALERT TO PERSON ONLY. CALM AND COOPERATIVE WITH ASSESSMENT AT THIS TIME. BRUISING NOTED TO LEFT AND RIGHT EYE, RIGHT FOREHEAD, AND LEFT HIP. PT DENIES PAIN OR DISCOMFORT AT THIS TIME. PRESCRIBED MEDICATIONS PROVIDED ORDERED. MED COMPLIANT. PT IS CALM AT THIS TIME. NO BEHAVIORS NOTED AT THIS TIME. PT TOLERATED SHOWER WITH STAFF ASSIST X 1 WELL AT THIS TIME. FALL PRECAUTIONS IN PLACE FOR SAFETY. ALARM IN PLACE AND WORKING. WILL CPOC.
--- NOTE | 2020-06-30 12:31 | NUR ---
ATTEMPTED TO CALL DR. ENGLAND AT THIS TIME. AWAITING ON RETURN CALL AT THIS TIME. WILL CPOC.
--- NOTE | 2020-06-30 13:11 | NUR ---
DR. ENGLAND RETURNED CALL AT THIS TIME. NO NEW ORDERS NOTED. DR. ENGLAND STATED TO MONITOR PT FOR ANY CHANGE IN CONDITION, MENTAL STATUS, OR PAIN. IF NOTED ORDER CT SCAN OF HEAD AND LEFT HIP XRAY. WILL CPOC.
--- NOTE | 2020-06-30 20:04 | NUR ---
RECEIVED IN BEDROOM. RESTING IN BED WITH EYES CLOSED. CALM AND COOPERATIVE WITH CARE AND ASSESSMENT. NO SIGNS OF PARANOIA OR DELUSIONAL STATEMENTS THIS EVENING. REDIRECT AND REORIENT NEEDED, CONTINUES TO REST QUIETLY IN BED. CONTINUE PLAN OF CARE.
[2020-06-30 21:12] VITALS: BP 122/70
[2020-07-01 08:00] VITALS: BP 126/67
--- NOTE | 2020-07-01 13:43 | NUR ---
PATIENT REFUSED PT.
--- NOTE | 2020-07-01 15:16 | PN ---
PATIENT:EDISON ADORNO MEDICAL RECORD: [id number] LOCATION:CH[facility]ST[facility] ADMISSION DATE: 06/12/20 PROGRESS NOTE DATE OF SERVICE: 06/27/2020 SUBJECTIVE: The patient's case was discussed with staff. He has no new complaint. OBJECTIVE: The patient is in good behavioral control with poor insight about his situation. ASSESSMENT: Dementia. PLAN: Current medicines have been reviewed and will be maintained. The patient has had some agitated behavior today, but I believe that the medication changes made recently are going to be effective if given a little longer. TRANSINT:[id number] Voice Confirmation ID: [id number] DOCUMENT ID: [id number] ANATOLY HALE MD at 1516 CC: [id number] DICTATION DATE: 06/27/20 1634 SEPTIC CLEANER: 06/27/20 1809 ADM IN [id number] [place] [address]
--- NOTE | 2020-07-01 19:36 | NUR ---
PATIENT ALERT AND CALM THIS SHIFT. COMPLIANT WITH MEDS AND STAFF DIRECTION. NO BEHAVIORAL ISSUES NOTED. PT WAS INTERVIEWED BY GONZÁLEZ TAPIA FOR POSSIBLE [facility] PLACEMENT.
--- NOTE | 2020-07-01 20:56 | NUR ---
RECEIVED IN BEDROOM. RESTING IN BED WITH EYES OPEN. MHT AT BEDSIDE. CALM AND COOPERATIVE WITH CARE AND ASSESSMENT. NO SIGNS OF PARANOIA.. REDIRECT AND REORIENT NEEDED. RESTING IN BED WITH EYES CLOSED AT THIS TIME. CONTINUE PLAN OF CARE.
[2020-07-01 20:59] VITALS: BP 119/62
[2020-07-02 08:00] VITALS: BP 126/76
--- NOTE | 2020-07-02 11:55 | NUR ---
GT BELT, PATIENT MIN ASST TO STAND AND MIN-MOD ASST TO WALK 110 FEET USING WALKER. PATIENT WAS MORE UNSTEADY TODAY.
--- NOTE | 2020-07-02 15:49 | PN ---
PATIENT:EDISON ADORNO MEDICAL RECORD: [id number] LOCATION:CH[facility]STIAN[facility] ADMISSION DATE: 06/12/20 PROGRESS NOTE DATE OF SERVICE: 07/01/2020 SUBJECTIVE: The patient's case was discussed with staff. He has no new complaint. OBJECTIVE: The patient is in good behavioral control with limited insight about his situation. He is participating in treatment reasonably well. He does get easily agitated at times and he is not sleeping well. ASSESSMENT: Dementia. PLAN: I intend to increase the patient's Klonopin slightly and we will add Trish for his thought disorganization. TRANSINT:[id number] Voice Confirmation ID: [id number] DOCUMENT ID: [id number] ANATOLY HALE MD at 1549 CC: [id number] DICTATION DATE: 07/01/20 1651 ADVERTISING SPECIALIST: 07/01/[address] [facility] [address] [place] [address]
--- NOTE | 2020-07-02 16:07 | NUR ---
ORIENTED TO SELF ONLY.COMPLIANT WITH STAFF AND MEDS.NO NEGATIVE BEHAVIORS OBSERVED.RECEIVED THIS AM UP IN ROOM IN WHEELCHAIR.PROPELLS SELF ABOUT UNIT.CONTINENT OF BOWEL AND BLADDER.WATCHING TV IN DAYROOM AT PRESENT TIME.WILL CONTINUE WITH CURRENT PLAN OF CARE,MONITOR FOR CHANGES AND SAFETY.
[2020-07-02 20:30] VITALS: BP 122/60
--- NOTE | 2020-07-02 20:37 | NUR ---
RECEIVED IN DAYROOM. SITTING IN A WHEELCHAIR WITH PEERS AT HIS SIDE. SOCIAL. CALM AND COOERATIVE WITH CARE AND ASSESSMENT. NO SITGNS OF PARANOIA OR DELUSIONAL STATEMENTS. REDIRECT AND REORIENT NEEDED. CONTINUES TO BE SOCIAL WITH STAFF AND PEERS. CONTINUE PLAN OF CARE.
--- NOTE | 2020-07-02 21:39 | NUR ---
SPOKE WITH PATIENT'S . RELATED HE WAS TEARFUL DURING THEIR CONVERSATION TODAY TO THE POINT SHE COULD NOT UNDERSTAND HIM AT TIMES. INQUIRED IF PATIENT IS DISCHARGING TO [facility] TOMORROW. INFORMED SPOUSE THAT IS WHAT WE RECEIVED IN REPORT HOWEVER THERE IS NOT A WRITTEN ORDER FROM THE DOCTOR AT THIS TIME. RELATED SHE HAD NOT HEARD ANYTHING FROM THE [employer] SERVICE SALES REPRESENTATIVE AND WAS HOPING SHE WOULD HAVE A FEW DAYS NOTICE. SUGGESTED PATIENT CALL IN THE AM TO SEE IF THERE HAS BEEN AN ORDER WRITTEN.
[2020-07-03 08:00] VITALS: BP 140/77
--- NOTE | 2020-07-03 10:34 | NUR ---
brewery cellar worker spoke to patient's , Ivania, to discuss discharge planning. She reported that shiftman told her patient was discharging today.brewery cellar worker clarified that this was not accurate information and social work instructor is waiting on the dash form to come back.brewery cellar worker did report that when the dash comes back after being processed as a level 2 patient will then be sent to [facility] the next day. brewery cellar worker expressed that this should be in the next day or two. Paperwork has been signed to [facility] and rehab and discharge will follow. Ivania expressed gratitude for clarification of discharge process and was grateful she has some notice.brewery cellar worker did clarify that patient still needs long-term care facility even though he is more stable.Ivania voiced understanding of discussion at this time and expressed no more needs.
--- NOTE | 2020-07-03 11:28 | NUR ---
GT BELT, PATIENT MIN ASST TO STAND AND MOD ASST TO WALK 110 FEET USING WALKER. PATIENT WAS UNSTEADY AND DOES NOT USE PROPER WALKER MANAGEMENT.
--- NOTE | 2020-07-03 16:05 | NUR ---
Nutrition Re-Assessment Diet: Diabetic with Friant thickened liquids PO intake: 100% x last 9 meals Last BM: 07/01/20 x 2 Wt: 203# (06/30/20); Admit Wt: 199.4# (06/12/20) Meds noted: SSI Labs noted: POC Glu 113(H) Estimated nutrition needs: 0789-1716 lola (20-25 Act), 74-92gms protein (0.8-1), 1800-2700mL fluid (or per MD) Nutrition diagnosis: Swallowing difficulty r/t h/o CVA AEB need for nectar thickened liquids for safe swallow PO liquids. Nutrition goals: -PO intake =/>75% meals -Meet fluid needs -Stable weight DHS Recommenations/Interventions: -Recommend continue current diet/or per CLUTCH OPERATOR recommendations. -Will continue to honor food preferences within diet restrictions. -RD will follow-up within 7 days.
--- NOTE | 2020-07-03 17:20 | NUR ---
PT EATING DINNER AT THIS TIME. PT IS CALM AND COOPERATIVE WITH STAFF AND PEERS. CONFUSION NOTED. PT NOT NOTED TO TALK TO HALLUCINATIONS. PT IS UNSTEADY AND REQUIRES SOME ASSISTANCE WITH AMBULATION. PT NOTED WHEN STANDING TO URINATE HE PRESSES FACE AGAINST THE RAILS. CAN MAKE NEEDS KNOWN. COMPLIANT WITH MEDS, VITALS AND ASSESSMENTS. NO BEHAVIORS NOTED. CHAIR ALARM IN PLACE AND ACTIVE. WILL CONT PLAN OF CARE.
--- NOTE | 2020-07-03 18:30 | NUR ---
Rec'd patient this am lting in bed. He has been med compliant and takes meds whole. He is A/O with no signs of Delusions or Paranoia. He has a HX of Seizure disorders and Lewy Body Alz. He has been cooperative today.
[2020-07-03 20:00] VITALS: BP 130/67
--- NOTE | 2020-07-03 23:02 | NUR ---
RECEIVED PATIENT IN HALLWAY SITTING CALMLY IN WHEEL CHAIR, CAN MAKE NEEDS KNOWN, CONFUSED MOST OF THE TIME. COMPLIANT WITH MEDS. NO ADVERSE REACTION NOTED. WILL FOLLOW POC
[2020-07-04 08:00] VITALS: BP 146/76
--- NOTE | 2020-07-04 11:16 | PN ---
PATIENT:EDISON ADORNO MEDICAL RECORD: [id number] LOCATION:CH[facility]ST[facility] [address] ADMISSION DATE: 06/12/20 PROGRESS NOTE DATE OF SERVICE: 07/03/2020 SUBJECTIVE: The patient's case was discussed with staff. He has no new complaint. OBJECTIVE: The patient has been in good behavioral control and has had no thoughts of harming himself or others. ASSESSMENT: Dementia. PLAN: The patient can be transitioned out of the hospital as soon as placement is arranged. His long-term prognosis is guarded. TRANSINT:[id number] Voice Confirmation ID: [id number] DOCUMENT ID: [id number] ANATOLY HALE MD at 1116 CC: [id number] DICTATION DATE: 07/03/20 170 INSTRUMENTATION ENGINEER: 07/04/20 0036 ADM IN [facility] [address] [place] [address]
--- NOTE | 2020-07-04 11:16 | PN ---
PATIENT:EDISON ADORNO MEDICAL RECORD: [id number] LOCATION:[facility] ADMISSION DATE: 06/12/20 PROGRESS NOTE DATE OF SERVICE: 07/02/2020 SUBJECTIVE: The patient's case was discussed with staff. He has no new complaint. OBJECTIVE: The patient is in good behavioral control. He is impaired cognitively. ASSESSMENT: Dementia. PLAN: The patient's approval from the office of long-term care is pending. Once that is available, he will be transitioned to the [facility]. He is eating and sleeping well. TRANSINT:[id number] Voice Confirmation ID: [id number] DOCUMENT ID: [id number] ANATOLY HALE MD at 1116 CC: [id number] DICTATION DATE: 07/02/20 170 CORPORATE COMPLIANCE DIRECTOR: 07/02/20 2342 ADM IN [facility] [address] [place] [address]
--- NOTE | 2020-07-04 12:32 | NUR ---
MYRA SPOKE TO PT'S , THELMA, TO ALERT OF DISCHARGE TO [facility] TOMORROW. WILLIE HAS COME BACK. THIS WAS THELMA'S 4TH CHOICE IN PLACEMENT DUE TO OTHER NURSING HOMES NOT BEING ABLE TO MEET PT'S NEEDS OR HAVE BED AVAILABILITY AT THIS TIME. PT IS ON THE WAITING LIST FOR [facility]. NO OTHER NEEDS WERE VOICED AT THIS TIME. THELMA DID VOICE UNDERSTANDING OF DISCUSSION.
--- NOTE | 2020-07-04 13:06 | NUR ---
SW SPOKE WITH [facility] AND LET THEM KNOW THE WILLIE CAME BACK. PT'S IS SIGNING PPW TOMORROW AT 11 AND [facility] WILL CALL WITH [facility] [employer] TIME.
--- NOTE | 2020-07-04 14:06 | NUR ---
nurse spoke with pts this shift. passcode given. pt Ivania wanted to know how he was doing at this time and how he did last night. nurse stated he had a good night and slept well report per science instructor. pt was doing well this shift with no behaviors noted. pt has not been seen speaking to unseen others at this time. she thanked nurse for the information.
[2020-07-04] MEDS ORDERED: GEODON20 MG PO (15:01)
[2020-07-04] MEDS ORDERED: EFFEXOR37.5 MG PO (15:01)
[2020-07-04] MEDS ORDERED: LIPITOR10 MG PO (15:01)
[2020-07-04] MEDS ORDERED: KLONOPIN1 MG PO (15:01)
[2020-07-04] MEDS ORDERED: NAMENDA5 MG PO (15:01)
--- NOTE | 2020-07-04 15:17 | NUR ---
GT BELT, PATIENT MIN ASST TO STAND AND MOD ASST TO WALK IN CHEN FOR 120 FEET USING WALKER. PATIENT WAS UNSTEADY AND CROSSED HIS FEET A FEW TIMES WHILE WALKING. PATIENT NEEDED MORE ASST TO KEEP HIS BALANCE THIS SESSION WELL.
--- NOTE | 2020-07-04 17:50 | NUR ---
PT VISITING WITH BROTHER AT THIS TIME. PT IS CALM AND COOPERATIVE AT THIS TIME. CONFUSED. ALERT TO SELF ONLY. REDIRECT AND REORIENT NEEDED. DENIES ANY PAIN. CAN MAKE NEEDS KNOWN. REQUIRES ASSISTANCE WITH ADLS. NO AGRESSIVE BEHAVIOR NOTED. NO PARANOID NOTED. NO SPEAKING TO UNSEEN OTHERS. COMPLIANT WITH MEDS, VITALS AND ASSESSMENTS. BED AND CHAIR ALARM IN PLACE AND ACTIVE. WILL CONT PLAN OF CARE.
--- NOTE | 2020-07-04 18:24 | NUR ---
NURSE ASSISTED PT INTO BED AT THIS TIME. PT WAS CALM AND COOPERATIVE. DONNED GOWN AND NEW BRIEF. BED ALARM IN PLACE AND ACTIVE.
[2020-07-04 20:00] VITALS: BP 138/76
--- NOTE | 2020-07-05 00:51 | NUR ---
B) patient is alert and oriented to person ad being in a hospital, calm and cooperative with staff this shift, I) Administered scheduled medictions as ordered, monitored for safey, R) Mediation compliant, no yelling out or hallucination noted this shift, P) continue plan of care.
[2020-07-05 08:00] VITALS: BP 129/63
--- NOTE | 2020-07-05 10:50 | NUR ---
pt sitting in w/c at this time. pt is calm and cooperative. no behaviors noted. no talking to unseen others. confusion noted. redirect and reorient as needed. compliant with meds, vitals and assessments. standby assist. can make some needs known. bed alarm in place and active. will cont plan of care.
--- NOTE | 2020-07-05 12:55 | NUR ---
Nurse called report to Alesha admit person at [facility]. nurse gave a history, code status, diet, medications and diagnosis, morning meds, nurse made copy of EKG, fax Sars-19 antigen results to facility. nurse gave a breif history. weight obtained. all personal belongings packed up including CAP machine. paperwork faxed to facility.
[2020-07-05 13:56] LABS: SARS-CoV-2 ANTIGEN NEGATIVE- SARS-COV-2 (NEGATIVE)
--- NOTE | 2020-07-05 14:34 | NUR ---
pt d/c to [facility] this shift. pt tolerated transfer w/c to w/c well. all personal belongings sent as well. paper copy sent with pt at this time. pt showered prior to d/c and shaved. pt was excited to go to his new home. pt stated he was trying to be good for us so he could leave. pt was thankful for the staff and showed appreciation to staff. all personal belongings sent with pt at this time including CPAP machine. pt transferred to facility w/c at this time. tolerated well.
--- NOTE | 2020-07-05 15:06 | NUR ---
attempted to contact at this time. unable to do so. will attempt at a later time.
--- NOTE | 2020-07-08 14:40 | PN ---
PATIENT:EDISON ADORNO MEDICAL RECORD: [id number] LOCATION:[facility] ADMISSION DATE: 06/12/20 PROGRESS NOTE DATE OF SERVICE: 07/04/2020 SUBJECTIVE: The patient's case was discussed with staff. He has no new complaint. OBJECTIVE: The patient is in good behavioral control with poor insight about his situation. ASSESSMENT: Dementia. PLAN: Current medicines have been reviewed and will be maintained. I anticipate he can be transitioned out of the hospital and to the [facility] tomorrow. TRANSINT:[id number] Voice Confirmation ID: [id number] DOCUMENT ID: [id number] ANATOLY HALE MD at 1440 CC: [id number] DICTATION DATE: 07/04/20 1608 PRECONSTRUCTION MANAGER: 07/04/202004 DIS IN 07/05/20 [facility] [address] [place] [address]
== END 2020-07-05 14:50 | DRG 57 ==
LOC: D.PSYCH 13:27
PROVIDERS: ADMIT Psychiatry & Neurology Psychiatry; ATTEND Psychiatry & Neurology Psychiatry
DX: G30.9 Alzheimer's disease, unspecified (principal); F02.81 Dementia in other diseases classified elsewhere, unspecified severity, with behavioral disturbance; F33.3 Major depressive disorder, recurrent, severe with psychotic symptoms; I25.10 Atherosclerotic heart disease of native coronary artery without angina pectoris; E78.5 Hyperlipidemia, unspecified; T56.0X1S Toxic effect of lead and its compounds, accidental (unintentional), sequela; I12.9 Hypertensive chronic kidney disease with stage 1 through stage 4 chronic kidney disease, or unspecified chronic kidney disease; E11.22 Type 2 diabetes mellitus with diabetic chronic kidney disease; N18.9 Chronic kidney disease, unspecified; M1A.10X0 Lead-induced chronic gout, unspecified site, without tophus (tophi); I69.919 Unspecified symptoms and signs involving cognitive functions following unspecified cerebrovascular disease